=== PATIENT | male | born 1980 | race Caucasian/White ===

== ENCOUNTER 2019-07-14 12:35 | Emergency (ER) | payer OTHER ==
[2019-07-14 12:49] VITALS: BMI 31.2
[2019-07-14] MEDS ORDERED: PANTOPRAZOLE SODIUM 40 MG VIAL IVPUSH ONE (13:15)
[2019-07-14] MEDS ORDERED: FAMOTIDINE 20 MG/50 ML IVPB 20 MG/50 ML MG IVPB ONE ×2 (13:15→13:52)
[2019-07-14] MEDS ORDERED: ONDANSETRON 4 MG/2 ML VIAL IVPUSH ONE (13:15)
[2019-07-14] MEDS ORDERED: SODIUM CHLORIDE 1,000 ML IV STA (13:17)
[2019-07-14] MEDS ORDERED: PANTOPRAZOLE SODIUM 40 MG VIAL ONE (13:52)
[2019-07-14] MEDS ORDERED: ONDANSETRON 4 MG/2 ML VIAL ONE (13:52)
[2019-07-14 14:03] LABS: BASO % 0.4 % (0-2.0); EOS % 0.7 % (0-4.5); HEMATOCRIT 48.3 % (35.4-49); HEMOGLOBIN 16.2 GM/dL (11.7-16.9); LYMPH % 35.3 % (8-40); MCH 30.3 pg (25.7-33.7); MCHC 33.5 g/dl (32.0-35.9); MEAN CELL VOLUME 90.4 fl (80-96); MEAN PLT VOLUME 9.3 fl (7.5-11.1); MONO % 5.9 % (3.8-10.2); NEUT % 57.7 % (42.8-82.8); PLATELET COUNT 218 K/MM3 (134-434); RBC 5.35 M/mm3 (4.00-5.60); RDW 12.9 % (11.9-15.9); WHITE BLOOD COUNT 4.9 K/mm3 (4.0-10.0)
[2019-07-14 14:22] LABS: MAGNESIUM 2.2 mg/dL (1.8-2.4)
[2019-07-14 14:27] LABS: ALBUMIN 4.2 g/dl (3.4-5.0); BILIRUBIN,TOTAL 0.5 mg/dL (0.2-1); BLOOD UREA NITROGEN 12.2 mg/dL (7-18); CALCIUM 9.3 mg/dL (8.5-10.1); CREATININE 1.1 mg/dL (0.55-1.3); POTASSIUM 4.1 mmol/L (3.5-5.1); TOT PROT 7.8 g/dl (6.4-8.2)
--- NOTE | 2019-07-14 15:20 | PDOC ---
History of Present Illness - General Chief Complaint: Pain Stated Complaint: STOMACH PAIN Time Seen by Provider: 07/14/19 13:02 History Source: Patient, Significant Other Exam Limitations: No Limitations - History of Present Illness Initial Comments: 07/14/19 13:55 38 yo M w/ a h/o HTN (non compliant, has not taken his BP meds in 5 days becuase his doc told him to stop, but ptiot to that would only take it once in a while, when he gets a headache) comes in c/o 2 days of a burning epigastric pain worse with laying down and on an empy stomach. When he eats it gets better but worsens a couple of hours later. Pt has started a new diet a week ago, has been eating caesar dressing on his salad every day. No other complaints today, no known sick contacts, no recent travel. NO fever/chills, no NVD, no urinary symptoms, last BM was today, was normal. No prior h/o similar symptoms. Pt took pepto bismol prior to arrival but it did not help much. Past History - Past Medical History Allergies/Adverse Reactions: Allergies Allergy/AdvReac Type Severity Reaction Status Date / Time No Known Allergies Allergy Verified 07/14/19 12:46 Home Medications: Ambulatory Orders Famotidine [Pepcid] 20 mg PO DAILY 20 Days #20 tablet 07/14/19 COPD: No CHF: No HTN: Yes - Immunization History Immunization Up to Date: Yes - Psycho Social/Smoking Cessation Hx Smoking History: Never smoked Hx Alcohol Use: No Drug/Substance Use Hx: No Review of Systems - Review of Systems Able to Perform ROS?: Yes Constitutional: No: Chills, Fever, Malaise, Night Sweats HEENTM: No: Eye Pain, Recent change in vision, Throat Pain Respiratory: No: Cough, Shortness of Breath Cardiac (ROS): No: Chest Pain, Palpitations, Chest Tightness ABD/GI: Yes: Abdominal cramping. No: Diarrhea, Nausea, Vomiting : No: Dysuria, Hematuria Musculoskeletal: No: Back Pain Integumentary: No: Rash Neurological: No: Headache, Numbness, Dizziness Psychiatric: No: Change in Appetite Endocrine: No: Unexplained Weight Loss *Physical Exam - Vital Signs Last Vital Signs Temp Pulse Resp BP Pulse Ox 97.8 F 66 15 145/70 99 10/11/19 12:46 07/14/19 12:46 07/14/19 12:46 07/14/19 12:46 07/14/19 12:46 - Physical Exam General Appearance: Yes: Nourished. No: Apparent Distress HEENT: positive: KALEN, Normal ENT Inspection, Normal Voice. negative: Pale Conjunctivae, Scleral Icterus (R), Scleral Icterus (L) Neck: positive: Supple. negative: Decreased range of motion, Tender midline Respiratory/Chest: positive: Lungs Clear, Normal Breath Sounds. negative: Respiratory Distress, Accessory Muscle Use Cardiovascular: positive: Regular Rhythm, Regular Rate Gastrointestinal/Abdominal: positive: Normal Bowel Sounds, Tender (epigastric area), Soft, Other ((-)murphys sign, no tenderness at McBurney's point. (-) Rosving sign, (-)Psoas sign.). negative: Guarding, Rebound Musculoskeletal: positive: Normal Inspection. negative: CVA Tenderness, Decreased Range of Motion Extremity: positive: Normal Capillary Refill, Normal Inspection, Normal Range of Motion. negative: Tender, Pedal Edema Integumentary: positive: Normal Color, Dry. negative: Jaundice, Rash Neurologic: positive: Fully Oriented, Alert, Normal Mood/Affect ED Treatment Course - LABORATORY CBC & Chemistry Diagram: 07/14/19 13:44 07/14/19 13:44 Medical Decision Making - Medical Decision Making 07/14/19 14:27 38 yo M w/ likely gastritis from eating caesar dressing everyday. Will line and lab, give pepcid, zofran, protonix and reassess 07/14/19 16:25 Pt feels a lot better, tolerated fluids, no abdominal pain. Abdomen soft, NT ND Labs reviewed WIll discharge with PMD follow up, bland diet, no spicy/greasy/acidic foods, gastritis diet. NO eating 2 hours prior to laying down. Return for worsening/concerning symptoms Pt verbalizes understanding and agrees with plan Discharge - Discharge Information Problems reviewed: Yes Clinical Impression/Diagnosis: Gastritis Qualifiers: Gastritis type: unspecified gastritis Chronicity: acute Gastritis bleeding: presence of bleeding unspecified Qualified Code(s): K29.00 - Acute gastritis without bleeding Condition: Stable Disposition: HOME - Follow up/Referral Referrals: ON STAFF,NOT [Primary Care Provider] - - Patient Discharge Instructions Patient Printed Discharge Instructions: DI for Gastritis, [place] Diet Additional Instructions: Do not eat anything greasy/spicy. Do not lay down for 2 hours after eating. - Post Discharge Activity
[2019-07-14 15:50] LABS: URINE APPEARANCE CLEAR; URINE BILIRUBIN NEGATIVE (NEGATIVE); URINE COLOR YELLOW; URINE GLUCOSE (UA) NEGATIVE (NEGATIVE); URINE KETONE NEGATIVE (NEGATIVE); URINE LEUK ESTERASE NEGATIVE (NEGATIVE); URINE NITRITE NEGATIVE (NEGATIVE); URINE PROTEIN NEGATIVE (NEGATIVE); URINE UROBILINOGEN 0.2 mg/dL (0.2-1.0)
[2019-07-14 16:49] VITALS: BP 136/78; PULSE 88; TEMP 98.5
--- NOTE | 2019-07-16 08:27 | EKG ---
Test Reason : Blood Pressure : / mmHG Vent. Rate : 050 BPM Atrial Rate : 050 BPM P-R Int : 174 ms QRS Dur : 092 ms QT Int : 420 ms P-R-T Axes : 062 -15 -06 degrees QTc Int : 382 ms SINUS BRADYCARDIA OTHERWISE NORMAL ECG NO PREVIOUS ECGS AVAILABLE Confirmed by Rebeca Woodson ([id number]) on 07/16/2019 8:27:01 AM Referred By: Confirmed By:Rebeca Woodson
== END 2019-07-14 16:49 | disposition home or self-care (01) ==
LOC: JER 12:35
PROC: 3E033GC Introduction of Other Therapeutic Substance into Peripheral Vein, Percutaneous Approach (ICD-10-PCS; principal; 2019-07-14)
PROC: 3E033GC Introduction of Other Therapeutic Substance into Peripheral Vein, Percutaneous Approach (ICD-10-PCS; 2019-07-14)
PROC: 3E033GC Introduction of Other Therapeutic Substance into Peripheral Vein, Percutaneous Approach (ICD-10-PCS; 2019-07-14)
PROC: 3E0337Z Introduction of Electrolytic and Water Balance Substance into Peripheral Vein, Percutaneous Approach (ICD-10-PCS; 2019-07-14)
DX: K29.00 Acute gastritis without bleeding (principal); I10 Essential (primary) hypertension
CPT/HCPCS: 36415; 80053; 81003; 82550; 82553; 83690; 83735; 84100; 84484; 85025; 87086; 93005; 93010; 96361; 96365; 96375; 99283-25; J7030